=== PATIENT | male | born 1990 | race Caucasian/White ===

== ENCOUNTER 2018-08-12 13:25 | Emergency (ER) | payer OTHER ==
[~2018-08-12] VITALS: Ht 180.3 cm; Wt 81.7 kg
[2018-08-12] MEDS ORDERED: NORCO 10-325 T1 EACH PO (14:31)
[2018-08-12] MEDS ORDERED: BACTRIM DS TAB1 EACH PO (14:31)
[2018-08-12] MEDS ORDERED: GABAPENTIN 100100 MG PO (14:31)
[2018-08-12 16:24] VITALS: BP 137/92
== END 2018-08-12 16:51 | disposition home or self-care (01) ==
LOC: ER 13:25
DX: L02.212 Cutaneous abscess of back [any part, except buttock and flank] (principal); T37.5X5A Adverse effect of antiviral drugs, initial encounter; F17.210 Nicotine dependence, cigarettes, uncomplicated; Z88.1 Allergy status to other antibiotic agents; Z88.6 Allergy status to analgesic agent; Y92.89 Other specified places as the place of occurrence of the external cause